=== PATIENT | male | born 1985 ===

== ENCOUNTER 2017-11-30 10:44 | Emergency (ER) | payer OTHER ==
[2017-11-30 11:22] VITALS: BP 147/66
--- NOTE | 2017-11-30 11:43 | UC ---
Respiratory Complaint HPI - HPI Summary HPI Summary: cough x 3 weeks cough is dry , no fever, no chills, no body aches, no sore throat , no runny nose, no pnd - History of Current Complaint Chief Complaint: UCRespiratory Stated Complaint: COUGH X3 WKS Time Seen by Provider: 11/30/17 11:34 Hx Obtained From: Patient Onset/Duration: Gradual Onset, Lasting Weeks - 3, Still Present Timing: Constant Severity Initially: Moderate Severity Currently: Moderate Pain Intensity: 0 Character: Cough: Nonproductive Aggravating Factors: Exertion, Deep Breaths Alleviating Factors: Nothing Associated Signs And Symptoms: Negative: Dyspnea, Fever, Chills, Wheezing, Hemoptysis, Dizziness, Calf Pain, Calf Swelling, Edema, URI, Nasal Congestion, Hoarseness, Sinus Discomfort - Allergies/Home Medications Allergies/Adverse Reactions: Allergies Allergy/AdvReac Type Severity Reaction Status Date / Time No Known Allergies Allergy Verified 11/30/17 11:24 Home Medications: Home Medications NK [No Home Medications Reported] 11/30/17 [History Confirmed 11/30/17] PMH/Surg Hx/FS Hx/Imm Hx Previously Healthy: Yes - Surgical History Surgical History: None - Family History Known Family History: Negative: Diabetes - Social History Alcohol Use: Occasionally Substance Use Type: None Smoking Status (MU): Never Smoked Tobacco Review of Systems Constitutional: Negative Skin: Negative Eyes: Negative ENT: Negative Respiratory: Cough Cardiovascular: Negative Is Patient Immunocompromised?: No All Other Systems Reviewed And Are Negative: Yes Physical Exam Triage Information Reviewed: Yes Appearance: Well-Appearing, No Pain Distress, Well-Nourished Vital Signs: Initial Vital Signs Temp 98.3 F 11/30/17 11:18 Pulse 82 11/30/17 11:18 Resp 14 11/30/17 11:18 BP 147/66 11/30/17 11:18 Pulse Ox 96 11/30/17 11:18 Eye Exam: Normal Eyes: Positive: Conjunctiva Clear ENT: Positive: Normal ENT inspection, Hearing grossly normal, Pharynx normal Neck exam: Normal Neck: Positive: Supple, Nontender, No Lymphadenopathy Respiratory: Positive: Chest non-tender, Lungs clear, Normal breath sounds, No respiratory distress Cardiovascular Exam: Normal Cardiovascular: Positive: RRR, No Murmur, Pulses Normal Skin Exam: Normal UC Diagnostic Evaluation - Laboratory O2 Sat by Pulse Oximetry: 96 Respiratory Course/Dx - Differential Dx/Diagnosis Provider Diagnoses: Bronchitis Discharge - Discharge Plan Condition: Stable Disposition: HOME Patient Education Materials: Acute Bronchitis (ED) Referrals: No Primary Care Phys,NOPCP [Primary Care Provider] - If Needed Additional Instructions: viral bronchitis no need for any antibiotics cont. with rest, increase fluid , follow up in 2 weeks if not better
== END 2017-11-30 11:44 | disposition home or self-care (01) ==
LOC: UCCORT 10:44
DX: J40 Bronchitis, not specified as acute or chronic (principal)
CPT/HCPCS: 99201; G0463